=== PATIENT | male | born 1950 | race Caucasian/White ===

== ENCOUNTER 2017-02-14 15:27 | Emergency (ER) | payer OTHER ==
[2017-02-14 15:35] VITALS: BP 152/89
--- NOTE | 2017-02-14 16:18 | EDM.PDOC ---
ED HPI GENERAL MEDICAL PROBLEM - General Chief Complaint: Back Pain or Injury Stated Complaint: RIGHT SIDE FLANK RASH Time Seen by Provider: 02/14/17 16:12 Source of Information: Reports: Patient History Limitations: Reports: No Limitations - History of Present Illness INITIAL COMMENTS - FREE TEXT/NARRATIVE: Patient is a 66-year-old gentleman who presents to the emergency department this afternoon with a complaint of rash to back and abdomen. Patient underwent lumbar surgery 1 week ago and is currently wearing a back brace. Patient states that he woke up this morning and noticed that his lower back and lower abdomen was red and itchy. Patient spoke to family members and they told him he may have shingles. Patient is currently on prednisone postop because he also has rheumatoid arthritis. Patient wears back brace during waking hours and sometimes without a shirt underneath. Patient denies fever, nausea, vomiting, rash anywhere else on the body. Onset: Today Duration: Hour(s): Location: Reports: Abdomen Quality: Reports: Burning Severity: Mild Improves with: Reports: None Worsens with: Reports: None Associated Symptoms: Reports: No Other Symptoms - Related Data Allergies Allergy/AdvReac Type Severity Reaction Status Date / Time No Known Drug Allergies Allergy Cannot Verified 02/14/17 15:34 Remember Home Meds: Home Meds Ascorbate Calcium [Vitamin C] 500 mg PO DAILY 04/23/14 [History] Losartan [Cozaar] 50 mg PO DAILY 04/23/14 [History] Multivitamin [Multi Vitamin Daily] 1 tab PO DAILY 04/23/14 [History] [place]-3 Fatty Acids [Fish Oil] 1,000 mg PO DAILY 04/23/14 [History] Loratadine [Claritin] 10 mg PO DAILY PRN 03/25/16 [History] predniSONE [Prednisone] 15 mg PO DAILY 02/14/17 [History] Past Medical History HEENT History: Reports: Impaired Vision Cardiovascular History: Reports: Hypertension Respiratory History: Reports: None Gastrointestinal History: Reports: GERD Genitourinary History: Reports: None Musculoskeletal History: Reports: Osteoarthritis, RA Neurological History: Reports: Concussion Psychiatric History: Reports: None Endocrine/Metabolic History: Reports: Obesity/BMI 30+ Hematologic History: Reports: None Immunologic History: Reports: None Dermatologic History: Reports: None - Infectious Disease History Infectious Disease History: Reports: Chicken Pox - Past Surgical History HEENT Surgical History: Reports: Oral Surgery Cardiovascular Surgical History: Reports: None Respiratory Surgical History: Reports: None GI Surgical History: Reports: Colonoscopy Male Surgical History: Reports: None Neurological Surgical History: Reports: Lumbar Spine Social & Family History - Tobacco Use Smoking Status *Q: Never Smoker Second Hand Smoke Exposure: No - Caffeine Use Caffeine Use: Reports: None - Alcohol Use Days Per Week of Alcohol Use: 0 - Recreational Drug Use Recreational Drug Use: No ED ROS GENERAL - Review of Systems Review Of Systems: ROS reveals no pertinent complaints other than HPI. Constitutional: Reports: No Symptoms HEENT: Reports: No Symptoms Respiratory: Reports: No Symptoms Cardiovascular: Reports: No Symptoms Endocrine: Reports: No Symptoms GI/Abdominal: Reports: No Symptoms : Reports: No Symptoms Musculoskeletal: Reports: No Symptoms Skin: Reports: Rash (Lower back and lower abdomen) Neurological: Reports: No Symptoms Psychiatric: Reports: No Symptoms Hematologic/Lymphatic: Reports: No Symptoms Immunologic: Reports: No Symptoms ED EXAM, SKIN/RASH Exam: See Below Exam Limited By: No Limitations General Appearance: Alert, WD/WN, No Apparent Distress Throat/Mouth: Normal Inspection, Normal Oropharynx, No Airway Compromise Head: Atraumatic, Normocephalic Neck: Normal Inspection Respiratory/Chest: No Respiratory Distress, Lungs Clear Cardiovascular: Regular Rate, Rhythm, No Murmur GI/Abdominal: Soft, Non-Tender Back Exam: Other (Midline incision without Isidro, or dermal sutures. No erythema, discharge or bogginess noted.) Extremities: Normal Inspection Neurological: Alert, Oriented, Normal Cognition Psychiatric: Normal Affect, Normal Mood Skin: Erythema (Urticarial erythema circumferential low back and low abdomen demarcated to exact dimensions of back brace. Erythema blanches and there are no pupules noted.) Location, Skin: Abdomen, Back Characteristics: Macular, Urticarial, Erythematous. No: Papular, Vesicular, Petechial Associated features: Warmth. No: Induration, Inflammation, Crusting, Weeping Lymphatic: No Adenopathy Course - Vital Signs Last Recorded V/S: Last Vital Signs Temp 98.1 F 02/14/17 15:30 Pulse 88 02/14/17 15:30 Resp 18 02/14/17 15:30 BP 152/89 H 02/14/17 15:30 Pulse Ox 96 02/14/17 15:30 - Re-Assessments/Exams Free Text/Narrative Re-Assessment/Exam: 02/14/17 16:19 Patient afebrile, nontoxic appearing. Vital signs stable. Explained in detail to patient and that a shirt should be worn with brace, and to use back brace when required. Let back brace air out to reduce moisture. Patient will follow up with PCP in 2-3 days. Patient will return back to ER if symptoms continue or worsen. Departure - Departure Time of Disposition: 16:21 Disposition: Home, Self-Care 01 Condition: Good Clinical Impression: Allergic reaction - Discharge Information Instructions: Rash, Contact Dermatitis, [id number] Referrals: Aron Saldaña MD [Primary Care Provider] - Additional Instructions: Shirt should be worn with brace, and use back brace when required. Let back brace air out to reduce moisture. Take 25mg of benedryl for itching. Follow up with PCP in 2-3 days. Return back to ER if symptoms continue or worsen. - Assessment/Plan Assessment:: Rash, allergic reaction Plan: Follow-up with pcp in 2-3 days.
== END 2017-02-14 16:35 | disposition home or self-care (01) ==
LOC: KA.ED 15:27
DX: T78.40XA Allergy, unspecified, initial encounter (principal); I10 Essential (primary) hypertension; Z79.899 Other long term (current) drug therapy; Z98.890 Other specified postprocedural states
CPT/HCPCS: 99282

== ENCOUNTER 2021-03-11 07:56 | Day surgery (SDC) | payer MEDICARE, BC ==
[2021-03-11] MEDS ORDERED: Propofol 200 MG/20 ML SDV IV ONE (07:57)
[2021-03-11] MEDS: Lactated Ringers 1,000 ML IV SCH (08:13)
[2021-03-11] MEDS ORDERED: Propofol 200 MG/20 ML SDV ONE ×2 (08:31→09:08)
[2021-03-11] MEDS ORDERED: Midazolam 1 MG/ML 2 ML SDV ONE (08:31)
--- NOTE | 2021-03-11 09:53 | PCM.PRNOTE ---
- Free Text/Narrative Note: PROCEDURE PERFORMED: Colonoscopy PRE-PROCEDURE DIAGNOSIS/INDICATION FOR PROCEDURE: Screening for colorectal cancer; last colonoscopy 12/26/10 normal CONSENT: Informed consent was obtained prior to the procedure after discussion of the risks (including pain, bleeding, infection, perforation, missed polyps, inability to completely remove polyps or complete procedure necessitating repeat colonoscopy, adverse reaction to anesthesia, cardiovascular event), benefits and alternatives and expected outcomes. The patient expressed understanding and wished to proceed. Verbal consent given and consent form signed. PROCEDURAL PAUSE: Completed SEDATION: Per anesthesia DESCRIPTION OF PROCEDURE: Patient was placed in the left lateral decubitus position. After adequate sedation and anesthetic was administered, a rectal exam was performed revealing no abnormalities. A lubricated Olympus Video Colonoscope was inserted into the rectum and air and water insufflation was performed. The colonoscope was advanced through the rectum, sigmoid, descending, transverse, and ascending colon without difficulties. The cecum was reached and the ileocecal valve as well as the appendiceal orifice were identified and pictorially documented. After adequate visualization of the cecum, the scope was withdrawn, giving 360-degree views of the colonic mucosa and retroflexion was performed in the rectum with the following findings noted: Ileocecal valve: Normal Cecum: Normal Ascending colon: Normal Hepatic flexure: Normal Transverse colon: Normal Splenic flexure: Normal Descending colon: Normal Sigmoid colon: Small-medium mouth diverticulosis without evidence of bleeding or inflammation Rectum: Grade I internal hemorrhoids The scope was straightened, air suction performed, and the scope withdrawn without complication. Preparation adequacy 10/08 (-1 sigmoid). IMPRESSION: Colonoscopy performed revealing: - Sigmoid diverticulosis - Internal hemorrhoids PLAN: Encourage adequate fiber diet and bowel regimen to ensure avoidance of constipation. Next colorectal cancer screening due in 10 years.
[2021-03-11 14:23] VITALS: BP 124/62; PULSE 73
== END 2021-03-11 11:00 | disposition home or self-care (01) ==
LOC: KA.SDS 07:56
PROVIDERS: ATTEND Family Medicine
DX: K57.30 Diverticulosis of large intestine without perforation or abscess without bleeding (principal); K64.0 First degree hemorrhoids; G47.33 Obstructive sleep apnea (adult) (pediatric); I10 Essential (primary) hypertension; K21.9 Gastro-esophageal reflux disease without esophagitis; E78.00 Pure hypercholesterolemia, unspecified; E66.9 Obesity, unspecified; G89.29 Other chronic pain; K59.00 Constipation, unspecified; M06.9 Rheumatoid arthritis, unspecified; M48.062 Spinal stenosis, lumbar region with neurogenic claudication; Z79.899 Other long term (current) drug therapy; Z88.8 Allergy status to other drugs, medicaments and biological substances; Z98.890 Other specified postprocedural states; Z68.35 Body mass index [BMI] 35.0-35.9, adult
CPT/HCPCS: 00812; J2250; J2704; J7120

== ENCOUNTER 2022-04-27 11:44 | Emergency (ER) | payer MEDICARE, BC ==
[2022-04-27 12:00] VITALS: BP 136/72; PULSE 87
== END 2022-04-27 12:55 | disposition home or self-care (01) ==
LOC: KA.ED 11:44
DX: M96.842 Postprocedural seroma of a musculoskeletal structure following a musculoskeletal system procedure (principal); I10 Essential (primary) hypertension; K21.9 Gastro-esophageal reflux disease without esophagitis; M06.9 Rheumatoid arthritis, unspecified; E66.9 Obesity, unspecified; Z68.34 Body mass index [BMI] 34.0-34.9, adult; Z96.652 Presence of left artificial knee joint; Z88.8 Allergy status to other drugs, medicaments and biological substances; Z79.899 Other long term (current) drug therapy
CPT/HCPCS: 99283; 99284